=== PATIENT | male | born 1980 | race African-American/Black ===

== ENCOUNTER 2019-06-26 09:44 | Inpatient (IN) | payer OTHER ==
[2019-06-26 10:22] VITALS: BMI 26.2
--- NOTE | 2019-06-26 15:39 | HP ---
CIWA Score Nausea/Vomitin-No Nausea/No Vomiting Muscle Tremors: 4-Moderate,w/Arms Extend Anxiety: 4-Mod. Anxious/Guarded Agitation: 4-Moderately Restless Paroxysmal Sweats: 3 Orientation: 0-Oriented Tacttile Disturbances: 0-None Auditory Disturbances: 0-None Visual Disturbances: 0-None Headache: 1-Very Mild CIWA-Ar Total Score: 16 - Admission Criteria OASAS Guidelines: Admission for Medically Managed Detox: Requires at least one of the followin. CIWA greater than 12 2. Seizures within the past 24 hours 3. Delirium tremens within the past 24 hours 4. Hallucinations within the past 24 hours 5. Acute intervention needed for co occurring medical disorder 6. Acute intervention needed for co occurring psychiatric disorder 7. Severe withdrawal that cannot be handled at a lower level of care (continued vomiting, continued diarrhea, abnormal vital signs) requiring intravenous medication and/or fluids 8. Admitting History and Physical - Admission Chief Complaint: I need help and need detox History of Present Illness: pt is a 38 yr old male with a history of alcohol dependence seeking detox for treatment. pt was at [facility] ED for alcohol withdrawals and experienced a seizure. pt was referred to our facility for detox. History Source: Patient Limitations to Obtaining History: No Limitations - Past Surgical History Past Surgical History: Yes: None - Smoking History Smoking history: Current every day smoker Have you smoked in the past 12 months: Yes Aproximately how many cigarettes per day: 10 - Alcohol/Substance Use Hx Alcohol Use: Yes History of Substance Use: reports: None - Social History Usual Living Arrangement: Yes: Alone History of Recent Travel: No Admission ROS [facility] Chief Complaint: I need to stop drinking. Allergies/Adverse Reactions: Allergies Allergy/AdvReac Type Severity Reaction Status Date / Time No Known Allergies Allergy Verified 06/26/19 10:16 History of Present Illness: pt is a 38 yr old male with history of alcohol dependence seeking detox for treatment. Exam Limitations: No Limitations - Ebola screening Have you traveled outside of the country in the last 21 days: No Have you had contact with anyone from an Ebola affected area: No Have you been sick,other than usual withdrawal symptoms: No Do you have a fever: No - Review of Systems Constitutional: Chills, Diaphoresis, Night Sweats, Changes in sleep EENT: reports: Tearing, Nose Congestion Respiratory: reports: No Symptoms reported Cardiac: reports: Lightheadedness GI: reports: Poor Appetite, Poor Fluid Intake : reports: No Symptoms Reported Musculoskeletal: reports: Back Pain, Joint Pain Integumentary: reports: Flushing, Sweating Neuro: reports: Headache, Seizure (last seizure yesterday.), Tingling, Tremors Endocrine: reports: Excessive Sweating, Flushing Hematology: reports: No Symptoms Reported Psychiatric: reports: Judgement Intact, Mood/Affect Appropiate, Orientated x3, Agitated, Anxious Other Systems: Reviewed and Negative Patient History - Patient Medical History Hx Anemia: No Hx Asthma: No Hx Chronic Obstructive Pulmonary Disease (COPD): No Hx Cancer: No Hx Cardiac Disorders: No Hx Congestive Heart Failure: No Hx Hypertension: Yes (non compliance with medication) Hx Hypercholesterolemia: Yes (non compliance with medication) Hx Pacemaker: No HX Cerebrovascular Accident: No Hx Seizures: No Hx Dementia: No Hx Diabetes: No Hx Gastrointestinal Disorders: No Hx Liver Disease: No Hx Genitourinary Disorders: No Hx Sexually Transmitted Disorders: No Hx Renal Disease (ESRD): No Hx Thyroid Disease: No Hx Human Immunodeficiency Virus (HIV): No (last 2018 negative) Hx Hepatitis C: No Hx Depression: No Hx Suicide Attempt: No Hx Bipolar Disorder: No Hx Schizophrenia: No - Patient Surgical History Past Surgical History: No - PPD History Previous Implant?: Yes Documented Results: Negative w/o proof Implanted On Prior [facility] Admission?: No PPD to be Administered?: Yes - Reproductive History Patient is a Female of Child Bearing Age (11 -55 yrs old): No - Smoking Cessation Smoking history: Current every day smoker Have you smoked in the past 12 months: Yes Aproximately how many cigarettes per day: 10 Hx Chewing Tobacco Use: No Initiated information on smoking cessation: Yes 'Breaking Loose' booklet given: 06/26/19 - Substance & Tx. History Hx Alcohol Use: Yes Substance Use Type: Alcohol Hx Substance Use Treatment: Yes - Substances abused Alcohol Substance route: Oral Frequency: Daily Amount used: "I DRINK ALOT" Age of first use: 31 Date of last use: 06/26/19 Admission Physical Exam [facility] - Vital Signs Vital Signs: Vital Signs - 24 hr 06/26/19 10:16 Temperature 97.0 F L Pulse Rate 104 H Respiratory 20 Rate Blood Pressure 187/92 H - Physical General Appearance: Yes: Appropriately Dressed, Moderate Distress, Tremorous, Irritable, Sweating, Anxious HEENTM: Yes: Hearing grossly Normal, Normal Voice, Nasal Congestion, Rhinorrhea Respiratory: Yes: Lungs Clear, Normal Breath Sounds, No Respiratory Distress Neck: Yes: No masses,lesions,Nodules Breast: Yes: Within Normal Limits Cardiology: Yes: Regular Rhythm, Regular Rate, S1, S2 Abdominal: Yes: Normal Bowel Sounds, Non Tender, Soft Genitourinary: Yes: Within Normal Limits Back: Yes: Normal Inspection Musculoskeletal: Yes: full range of Motion, Back pain Extremities: Yes: Normal Capillary Refill, Normal Inspection, Non-Tender, Tremors Neurological: Yes: management manager II-XII NML intact, Fully Oriented, Normal Response Integumentary: Yes: Normal Color, Diaphoresis Lymphatic: Yes: Within Normal Limits - Diagnostic (1) Alcohol dependence with uncomplicated withdrawal Current Visit: Yes Status: Chronic (2) Alcohol related seizure Current Visit: Yes Status: Chronic (3) History of head injury Current Visit: No Status: Acute (4) Nicotine dependence Current Visit: Yes Status: Chronic Qualifiers: Nicotine product type: cigarettes Substance use status: uncomplicated Qualified Code(s): F17.210 - Nicotine dependence, cigarettes, uncomplicated (5) Syncope Current Visit: Yes Status: Chronic Cleared for Admission S - Detox or Rehab [facility] Level of Care: Medically Managed Detox Regimen/Protocol: Librium Claeared for Rehab Admission: No Breathalyzer - Breathalyzer Breathalyzer: 0.019 Urine Drug Screen - Test Device Lot number: [id number] Expiration date: 02/01/21 - Control Is test valid?: Yes - Results Drug screen NEGATIVE: No Urine drug screen results: BZO-Benzodiazepines Inpatient Rehab Admission - Rehab Decision to Admit Inpatient rehab admission?: No
[2019-06-26] MEDS ORDERED: IBUPROFEN 400 MG TABLET (FP) PO PRN (15:45)
[2019-06-26] MEDS ORDERED: MAGNESIUM CITRATE 300 ML BOTTLE PO PRN (15:45)
[2019-06-26] MEDS ORDERED: MAGNESIUM HYDROX 2400MG/30ML ORAL SUSPENSION 30 ML CUP PO PRN (15:45)
[2019-06-26] MEDS ORDERED: chlordiazePOXIDE HCL 25 MG CAPSULE PO PRN (15:45)
[2019-06-26] MEDS ORDERED: BISMUTH SUBSALICYLATE 524 MG/30 ML UD PO PRN (15:45)
[2019-06-26] MEDS ORDERED: ONDANSETRON *ODT* 4 MG TABLET SL PRN (15:45)
[2019-06-26] MEDS ORDERED: MELATONIN 5 MG TABLETS PO PRN (15:45)
[2019-06-26] MEDS ORDERED: METHOCARBAMOL 500 MG TABLET PO PRN (15:45)
[2019-06-26] MEDS ORDERED: MENTHOL/PHENOL 1 EACH UD MM PRN (15:45)
[2019-06-26] MEDS ORDERED: hydrOXYzine PAMOATE 25 MG CAPSULE (FP) PO PRN (15:45)
[2019-06-26] MEDS ORDERED: MAG HYDROX/AL HYDROX/SIMETH 30 ML UNIT-DOSE CUP PO PRN (15:45)
[2019-06-26] MEDS ORDERED: ACETAMINOPHEN 325 MG TABLET (FP) PO PRN ×2 (15:45)
[2019-06-26] MEDS: chlordiazePOXIDE HCL 25 MG CAPSULE PO SCH ×2 (17:02→22:18)
[2019-06-26] MEDS: THIAMINE HCL 100 MG TABLET (FP) PO SCH (22:18)
[2019-06-26] MEDS: levETIRAcetam 250 MG TABLET (FP) PO SCH (22:18)
[2019-06-27] MEDS: chlordiazePOXIDE HCL 25 MG CAPSULE PO SCH ×4 (05:12→22:29)
[2019-06-27 09:59] LABS: HEMATOCRIT 26.7 % (35.4-49); HEMOGLOBIN 8.6 GM/dL (11.7-16.9); MCHC 32.4 g/dl (32.0-35.9); MEAN CELL VOLUME 86.4 fl (80-96); MEAN PLT VOLUME 8.8 fl (7.5-11.1); PLATELET COUNT 245 K/MM3 (134-434); RBC 3.09 M/mm3 (4.00-5.60); RDW 26.2 % (11.9-15.9); WHITE BLOOD COUNT 5.3 K/mm3 (4.0-10.0)
[2019-06-27] MEDS: PRENATAL VITAMINS W/ FOLIC ACID TABLET (FP) PO SCH (10:16)
[2019-06-27] MEDS: levETIRAcetam 250 MG TABLET (FP) PO SCH ×2 (10:16→22:31)
[2019-06-27 10:17] LABS: ALBUMIN 3.1 g/dl (3.4-5.0); BILIRUBIN,TOTAL 0.5 mg/dL (0.2-1); CALCIUM 8.8 mg/dL (8.5-10.1); CREATININE 0.6 mg/dL (0.55-1.3); POTASSIUM 3.7 mmol/L (3.5-5.1); TOT PROT 6.3 g/dl (6.4-8.2)
--- NOTE | 2019-06-27 13:19 | PN ---
[facility] CIWA - CIWA Score Nausea/Vomitin-Mild Nausea/No Vomiting Muscle Tremors: 2 Anxiety: 2 Agitation: 2 Paroxysmal Sweats: No Perspiration Orientation: 0-Oriented Tacttile Disturbances: 1-Very Mild Itch/Numbness Auditory Disturbances: 0-None Visual Disturbances: 0-None Headache: 2-Mild CIWA-Ar Total Score: 10 S Progress Note (SOAP) Subjective: alert,irritable,anxious,interrupted sleep,tremor,pain in the body Objective: 06/27/19 13:18 Vital Signs Temperature 97.9 F 06/27/19 09:25 Pulse Rate 96 H 06/27/19 09:25 Respiratory Rate 18 06/27/19 09:25 Blood Pressure 144/79 06/27/19 09:25 O2 Sat by Pulse Oximetry (%) Laboratory Last Values WBC 5.3 K/mm3 (4.0-10.0) 06/27/19 08:15 RBC 3.09 M/mm3 (4.00-5.60) L 06/27/19 08:15 Hgb 8.6 GM/dL (11.7-16.9) L 06/27/19 08:15 Hct 26.7 % (35.4-49) L D 06/27/19 08:15 MCV 86.4 fl (80-96) 06/27/19 08:15 MCH 28.0 pg (25.7-33.7) 06/27/19 08:15 MCHC 32.4 g/dl (32.0-35.9) 06/27/19 08:15 RDW 26.2 % (11.9-15.9) H 06/27/19 08:15 Plt Count 245 K/MM3 (134-434) D 06/27/19 08:15 MPV 8.8 fl (7.5-11.1) 06/27/19 08:15 Sodium 137 mmol/L (136-145) 06/27/19 08:15 Potassium 3.7 mmol/L (3.5-5.1) 06/27/19 08:15 Chloride 102 mmol/L (98-107) 06/27/19 08:15 Carbon Dioxide 28 mmol/L (21-32) 06/27/19 08:15 Anion Gap 7 MMOL/L (8-16) L 06/27/19 08:15 BUN 8.0 mg/dL (7-18) 06/27/19 08:15 Creatinine 0.6 mg/dL (0.55-1.3) 06/27/19 08:15 Est GFR (CKD-EPI)AfAm 145.76 06/27/19 08:15 Est GFR (CKD-EPI)NonAf 125.77 06/27/19 08:15 Random Glucose 97 mg/dL (74-106) 06/27/19 08:15 Calcium 8.8 mg/dL (8.5-10.1) 06/27/19 08:15 Total Bilirubin 0.5 mg/dL (0.2-1) 06/27/19 08:15 AST 57 U/L (15-37) H 06/27/19 08:15 ALT 45 U/L (13-61) 06/27/19 08:15 Alkaline Phosphatase 79 U/L (45-117) 06/27/19 08:15 Total Protein 6.3 g/dl (6.4-8.2) L 06/27/19 08:15 Albumin 3.1 g/dl (3.4-5.0) L 06/27/19 08:15 RPR Titer Nonreactive (NONREACTIVE) 06/27/19 08:15 Assessment: 06/27/19 13:18 withdrawal symptom Plan: continue detox librium regimen,history of anemia will give ferrous sulfate 325 mgs po bid
--- NOTE | 2019-06-27 13:37 | EKG ---
Test Reason : Blood Pressure : / mmHG Vent. Rate : 094 BPM Atrial Rate : 094 BPM P-R Int : 160 ms QRS Dur : 096 ms QT Int : 340 ms P-R-T Axes : 057 067 046 degrees QTc Int : 425 ms NORMAL SINUS RHYTHM VOLTAGE CRITERIA FOR LEFT VENTRICULAR HYPERTROPHY ABNORMAL ECG WHEN COMPARED WITH ECG OF 25-APR-2019 14:27, NO SIGNIFICANT CHANGE WAS FOUND Confirmed by ISAURO CARY, PALLAVI ([id number]) on 06/27/2019 1:36:44 PM Referred By: Confirmed By:PALLAVI BOX MD
[2019-06-27] MEDS: FERROUS SO4 325 MG TABLET (FP) PO SCH ×2 (14:43→22:29)
[2019-06-27] MEDS: THIAMINE HCL 100 MG TABLET (FP) PO SCH (22:31)
[2019-06-28] MEDS: chlordiazePOXIDE HCL 25 MG CAPSULE PO SCH ×2 (06:07→10:10)
[2019-06-28 06:33] VITALS: TEMP 98.6
[2019-06-28 09:07] VITALS: BP 148/90; PULSE 88
[2019-06-28] MEDS: PRENATAL VITAMINS W/ FOLIC ACID TABLET (FP) PO SCH (10:09)
[2019-06-28] MEDS: levETIRAcetam 250 MG TABLET (FP) PO SCH (10:09)
[2019-06-28] MEDS: FERROUS SO4 325 MG TABLET (FP) PO SCH (10:09)
--- NOTE | 2019-06-28 19:23 | DS ---
[facility] Detox Discharge Summary Admission Date: 06/26/19 Discharge Date: 06/28/19 - History Present History: Alcohol Dependence Additional Comments: DESPITE EFFORTS BY GARBAGE TRUCK DRIVER AND BY NURSING STAFF TO ADDRESS PATIENT'S MEDICAL NEEDS / CONCERNS, PATIENT DOES NOT WISH TO REMAIN TO COMPLETE DETOX REGIMEN. RISKS OF LEAVING DETOX UNIT AGAINST MEDICAL ADVICE AND PRIOR TO COMPLETION OF DETOX REGIMEN EXPLAINED TO PATIENT. PATIENT ADVISED TO GO IMMEDIATELY TO NEAREST ER SHOULD ANY INTOLERABLE WITHDRAWAL / DETOX SYMPTOMS DEVELOP AT ANY TIME. PATIENT VERBALIZED UNDERSTANDING OF ALL INFORMATION / RECOMMENDATIONS PRESENTED TO HIM PRIOR TO DEPARTURE FROM DETOX UNIT. PATIENT LEFT DETOX UNIT IN STABLE MEDICAL CONDITION. Pertinent Past History: History Of Head Injury, Nicotine Dependence, Anemia, History Of Alcohol-Related Seizure, History Of Syncope. - Physical Exam Results Vital Signs: Vital Signs Temperature 98.6 F 06/28/19 06:32 Pulse Rate 88 06/28/19 09:06 Respiratory Rate 18 06/28/19 09:06 Blood Pressure 148/90 06/28/19 09:06 O2 Sat by Pulse Oximetry (%) Pertinent Admission Physical Exam Findings: WITHDRAWAL SYMPTOMS. Laboratory Tests 06/27/19 06/27/19 06/27/19 08:15 08:15 08:15 WBC 5.3 RBC 3.09 L Hgb 8.6 L Hct 26.7 L D MCV 86.4 MCH 28.0 MCHC 32.4 RDW 26.2 H Plt Count 245 D MPV 8.8 Sodium 137 Potassium 3.7 Chloride 102 Carbon Dioxide 28 Anion Gap 7 L BUN 8.0 Creatinine 0.6 Est GFR (CKD-EPI)AfAm 145.76 Est GFR (CKD-EPI)NonAf 125.77 Random Glucose 97 Calcium 8.8 Total Bilirubin 0.5 AST 57 H ALT 45 Alkaline Phosphatase 79 Total Protein 6.3 L Albumin 3.1 L RPR Titer Nonreactive LABS NOTED. - Medication Discharge Medications: Ambulatory Orders Levetiracetam [Keppra] 250 mg PO BID 06/26/19 - Diagnosis (1) History of head injury Status: Acute (2) Alcohol dependence with uncomplicated withdrawal Status: Acute (3) Alcohol related seizure Status: Chronic (4) Nicotine dependence Status: Chronic Qualifiers: Nicotine product type: cigarettes Substance use status: uncomplicated Qualified Code(s): F17.210 - Nicotine dependence, cigarettes, uncomplicated (5) Syncope Status: Chronic Qualifiers: Syncope type: unspecified Qualified Code(s): R55 - Syncope and collapse - AMA Did Patient Leave Against Medical Advice: Yes (PATIENT DID NOT WISH TO REMAIN TO COMPLETE DETOX REGIMEN.) [facility] CIWA - CIWA Score Nausea/Vomitin-No Nausea/No Vomiting Muscle Tremors: None Anxiety: 3 Agitation: 3 Paroxysmal Sweats: 2 Orientation: 0-Oriented Tacttile Disturbances: 2-Mild Itch/Numbness/Burn Auditory Disturbances: 0-None Visual Disturbances: 0-None Headache: 0-None Present CIWA-Ar Total Score: 10
[2019-06-29] MEDS ORDERED: chlordiazePOXIDE HCL 10 MG CAPSULE PO PRN
[2019-06-29] MEDS ORDERED: chlordiazePOXIDE HCL 10 MG CAPSULE PO SCH (05:00)
[2019-06-30] MEDS ORDERED: chlordiazePOXIDE HCL 10 MG CAPSULE PO SCH (05:00)
[2019-07-01] MEDS ORDERED: chlordiazePOXIDE HCL 10 MG CAPSULE PO ONE (05:00)
== END 2019-06-28 11:28 | disposition left against medical advice (07) | DRG 770 ==
LOC: YASAS 09:44 → Y3N 15:40
PROVIDERS: ADMIT Allergy & Immunology; ATTEND Allergy & Immunology
PROC: HZ2ZZZZ Detoxification Services for Substance Abuse Treatment (ICD-10-PCS; principal; 2019-06-26)
DX: F10.230 Alcohol dependence with withdrawal, uncomplicated (principal); F17.210 Nicotine dependence, cigarettes, uncomplicated; I10 Essential (primary) hypertension; E78.00 Pure hypercholesterolemia, unspecified; Z86.69 Personal history of other diseases of the nervous system and sense organs; Z91.14 Patient's other noncompliance with medication regimen; Z87.828 Personal history of other (healed) physical injury and trauma
CPT/HCPCS: 36415; 80053; 85027; 86593; 93005; 93010

== ENCOUNTER 2019-06-26 12:45 | Emergency (ER) | payer OTHER ==
[2019-06-26 13:06] VITALS: BP 147/84; PULSE 92; TEMP 97.8; BMI 26.2
[2019-06-26] MEDS ORDERED: LORazepam 0.5 MG TABLET ONE (13:59)
[2019-06-26] MEDS ORDERED: LORazepam 1 MG TABLET PO ONE (14:01)
--- NOTE | 2019-06-26 14:45 | PDOC ---
Documentation entered by Estefany Dyer SCRIBE, acting as scribe for Brandyn Mcghee MD. Brandyn Mcghee MD: This documentation has been prepared by the Manisha da silva Sammi, SCRIBE, under my direction and personally reviewed by me in its entirety. I confirm that the documentation accurately reflects all work, treatment, procedures, and medical decision making performed by me. History of Present Illness - General Chief Complaint: Alcohol intoxication Stated Complaint: Alcohol intoxication Time Seen by Provider: 06/26/19 13:50 - History of Present Illness Initial Comments: 06/26/19 13:59 The patient is a 38 year old male with a PMH of alcohol abuse and seizures who presents to the emergency department from [facility] for evaluation of withdrawal symptoms, was tremulous, and had an IV in place from his recent evaluation at [facility] yesterday for "alcoholic seizures". At arrival to our ED , IV was not in place. He notes he only gets seizures when drinking and states he has 2 episodes yesterday. He denies any complaints other than he "wants a drink." Social hx: current smoker Past History - Past Medical History Allergies/Adverse Reactions: Allergies Allergy/AdvReac Type Severity Reaction Status Date / Time No Known Allergies Allergy Verified 06/26/19 10:16 Home Medications: Ambulatory Orders Levetiracetam [Keppra] 250 mg PO BID 06/26/19 Anemia: No Asthma: No Cancer: No Cardiac Disorders: No CVA: No COPD: No CHF: No Dementia: No Diabetes: No GI Disorders: No Disorders: No HTN: Yes (non compliance with medication) Hypercholesterolemia: Yes (non compliance with medication) Kidney Stones: No Liver Disease: No Seizures: No Thyroid Disease: No - Reproductive History Testicular Surgery: No - Psycho Social/Smoking Cessation Hx Smoking History: Current every day smoker Have you smoked in the past 12 months: Yes Number of Cigarettes Smoked Daily: 20 Information on smoking cessation initiated: No 'Breaking Loose' booklet given: 04/25/19 Hx Alcohol Use: Yes Drug/Substance Use Hx: No Substance Use Type: Alcohol Hx Substance Use Treatment: Yes (06/21 bharti mcdowell) Review of Systems - Review of Systems Comments:: 06/26/19 14:07 CONSTITUTIONAL: +tremulous. No fever, no chills, no fatigue EYES: No visual changes ENT: No ear pain, no sore throat CARDIOVASCULAR: No chest pain, no palpitations RESPIRATORY: No cough, no SOB GI: No abdominal pain, no nausea, no vomiting, no constipation, no diarrhea GENITOURINARY: No dysuria, no frequency, no hematuria MUSKULOSKELETAL: No backpain, no joint pain, no myalgias SKIN: No rash NEURO: No headache *Physical Exam - Vital Signs Last Vital Signs Temp Pulse Resp BP Pulse Ox 97.8 F 92 H 18 147/84 99 06/26/19 12:54 06/26/19 12:54 06/26/19 12:54 06/26/19 12:54 06/26/19 12:54 - Physical Exam Comments: 06/26/19 14:22 CONSTITUTIONAL: +minimal tremors HEAD: Normocephalic; atraumatic EYES: PERRL; EOM intact ENMT: External appears normal; normal oropharynx NECK: Supple; non-tender; no cervical lymphadenopathy CARD: Normal S1, S2; no murmurs, rubs, or gallops RESP: Normal chest excursion with respiration; breath sounds clear and equal bilaterally; no wheezes, rhonchi, or rales ABD: Soft, non-distended; non-tender; no palpable organomegaly, no palpable hernias EXT: Normal ROM in all four extremities; non-tender to palpation; distal pulses intact SKIN: Warm, dry, no rash NEURO: No focal neurological deficiencies. ED Treatment Course - Medications Given in the ED: ED Medications Discontinued Medications Generic Name Dose Route Start Last Admin Trade Name Jagdeepq PRN Reason Stop Dose Admin Lorazepam 1 mg 06/26/19 14:01 06/26/19 14:01 Ativan - PO 06/26/19 14:02 1 mg NOW ONE Administration Medical Decision Making - Medical Decision Making 06/26/19 14:42 38-year-old male with history of alcohol abuse presents from [facility] detox for weakness, stating that he feels like he is going to drink again. Patient states that he suffers alcoholic seizures only when he drinks excessively and does not suffer from alcohol withdrawal seizures during cessation of alcohol use. Patient was seen at [facility] and transferred to [facility] for evaluation. At that time he was noted to have an IV catheter in his left forearm was transferred to [facility] for its removal. However, the IV catheter was removed prior to patient's arrival in the ER. In the ER, he denies any acute symptomatology and wishes to be transferred back to [facility]. Patient has minimal tremulousness no other evidence of acute alcohol withdrawal. Vital signs are noted. Will administer 1 mg of Ativan p.o. and will transfer back to [facility] for intake. Discharge - Discharge Information Problems reviewed: Yes Clinical Impression/Diagnosis: Alcohol abuse Alcohol withdrawal Qualifiers: Complication of substance-induced condition: uncomplicated Qualified Code(s): F10.230 - Alcohol dependence with withdrawal, uncomplicated Condition: Stable Disposition: HOME - Follow up/Referral Referrals: Pietro Maddox MD [Staff Physician] - - Patient Discharge Instructions Patient Printed Discharge Instructions: DI for Drug or Alcohol Withdrawal - Post Discharge Activity
== END 2019-06-26 14:50 | disposition home or self-care (01) ==
LOC: JER 12:45
DX: F10.230 Alcohol dependence with withdrawal, uncomplicated (principal); F10.10 Alcohol abuse, uncomplicated
CPT/HCPCS: 99281-25

== ENCOUNTER 2022-04-12 14:36 | Inpatient (IN) | payer OTHER ==
[2022-04-12 15:17] VITALS: BMI 23.5
[2022-04-12] MEDS ORDERED: NICOTINE 10 MG CARTRIDGE (INHALER) IH PRN (16:23)
[2022-04-12] MEDS ORDERED: ACETAMINOPHEN 325 MG TABLET (FP) PO PRN ×2 (16:23)
[2022-04-12] MEDS ORDERED: MAGNESIUM HYDROX 2400MG/30ML ORAL SUSPENSION 30 ML CUP PO PRN (16:23)
[2022-04-12] MEDS ORDERED: METHOCARBAMOL 500 MG TABLET PO PRN (16:23)
[2022-04-12] MEDS ORDERED: DICYCLOMINE HCL 10 MG CAPSULE PO PRN (16:23)
[2022-04-12] MEDS ORDERED: ONDANSETRON *ODT* 4 MG TABLET SL PRN (16:23)
[2022-04-12] MEDS ORDERED: IBUPROFEN 400 MG TABLET (FP) PO PRN (16:23)
[2022-04-12] MEDS ORDERED: BENZOCAINE/MENTHOL (CHLORASEPTIC ) LOZENGE MM PRN (16:23)
[2022-04-12] MEDS ORDERED: BISMUTH SUBSALICYLATE 524 MG/30 ML PO PRN (16:23)
[2022-04-12] MEDS ORDERED: MAG HYDROX/AL HYDROX/SIMETH 30 ML UNIT-DOSE CUP PO PRN (16:23)
[2022-04-12] MEDS ORDERED: chlordiazePOXIDE HCL 25 MG CAPSULE PO PRN (16:23)
[2022-04-12] MEDS ORDERED: LOPERAMIDE HCL 2 MG CAPSULE PO PRN (16:23)
[2022-04-12] MEDS ORDERED: MAGNESIUM CITRATE 300 ML BOTTLE PO PRN (16:23)
[2022-04-12] MEDS: chlordiazePOXIDE HCL 25 MG CAPSULE PO SCH ×2 (18:25→22:47)
[2022-04-12] MEDS: PRENATAL VITAMINS W/ FOLIC ACID TABLET (FP) PO SCH (19:00)
[2022-04-12] MEDS: hydrOXYzine PAMOATE 25 MG CAPSULE (FP) PO SCH ×2 (19:00→22:47)
[2022-04-12] MEDS: THIAMINE HCL 100 MG TABLET (FP) PO SCH (22:48)
[2022-04-12] MEDS: MELATONIN 5 MG TABLETS PO SCH (22:49)
[2022-04-13] MEDS: chlordiazePOXIDE HCL 25 MG CAPSULE PO SCH ×4 (05:23→22:44)
[2022-04-13] MEDS: hydrOXYzine PAMOATE 25 MG CAPSULE (FP) PO SCH ×5 (05:23→22:43)
[2022-04-13 10:04] LABS: HEMATOCRIT 39.8 % (35.4-49); MCHC 32.7 g/dl (32.0-35.9); MEAN PLT VOLUME 9.2 fl (7.5-11.1); PLATELET COUNT 206 10^3/uL (134-434); RBC 3.94 M/mm3 (4.00-5.60); RDW 15.6 % (11.9-15.9); WHITE BLOOD COUNT 4.7 K/mm3 (4.0-10.0)
[2022-04-13] MEDS: PRENATAL VITAMINS W/ FOLIC ACID TABLET (FP) PO SCH (10:19)
[2022-04-13 11:27] LABS: CALCIUM 9.1 mg/dL (8.5-10.1)
[2022-04-13 11:30] LABS: CREATININE 0.7 mg/dL (0.55-1.3)
[2022-04-13 11:32] LABS: TOT PROT 7.3 g/dl (6.4-8.2)
[2022-04-13] MEDS: IBUPROFEN 600 MG TABLET (FP) PO PRN (16:56)
[2022-04-13] MEDS: THIAMINE HCL 100 MG TABLET (FP) PO SCH (22:43)
[2022-04-13] MEDS: levETIRAcetam 250 MG TABLET PO SCH (22:43)
[2022-04-13] MEDS: MELATONIN 5 MG TABLETS PO SCH (22:45)
[2022-04-14] MEDS: chlordiazePOXIDE HCL 25 MG CAPSULE PO SCH ×3 (05:32→17:53)
[2022-04-14] MEDS: hydrOXYzine PAMOATE 25 MG CAPSULE (FP) PO SCH ×4 (05:33→17:51)
[2022-04-14 06:13] VITALS: RESP 18
[2022-04-14] MEDS: levETIRAcetam 250 MG TABLET PO SCH (11:47)
[2022-04-14] MEDS: PRENATAL VITAMINS W/ FOLIC ACID TABLET (FP) PO SCH (11:50)
[2022-04-15] MEDS ORDERED: chlordiazePOXIDE HCL 10 MG CAPSULE PO PRN
[2022-04-15] MEDS: THIAMINE HCL 100 MG TABLET (FP) PO SCH ×2 (00:38→22:03)
[2022-04-15] MEDS: MELATONIN 5 MG TABLETS PO SCH ×2 (00:38→22:03)
[2022-04-15] MEDS: chlordiazePOXIDE HCL 25 MG CAPSULE PO SCH (00:38)
[2022-04-15] MEDS: levETIRAcetam 250 MG TABLET PO SCH ×3 (00:38→22:02)
[2022-04-15] MEDS: hydrOXYzine PAMOATE 25 MG CAPSULE (FP) PO SCH ×6 (00:38→22:03)
[2022-04-15] MEDS: chlordiazePOXIDE HCL 10 MG CAPSULE PO SCH ×4 (05:35→22:02)
[2022-04-15] MEDS: PRENATAL VITAMINS W/ FOLIC ACID TABLET (FP) PO SCH (10:13)
[2022-04-15] MEDS: IBUPROFEN 600 MG TABLET (FP) PO PRN (15:02)
[2022-04-16] MEDS ORDERED: chlordiazePOXIDE HCL 10 MG CAPSULE PO SCH (05:00)
[2022-04-16 06:02] VITALS: BP 146/83; PULSE 66; TEMP 97.7
[2022-04-16] MEDS: hydrOXYzine PAMOATE 25 MG CAPSULE (FP) PO SCH ×2 (06:40→10:16)
[2022-04-16] MEDS: PRENATAL VITAMINS W/ FOLIC ACID TABLET (FP) PO SCH (10:16)
[2022-04-16] MEDS: levETIRAcetam 250 MG TABLET PO SCH (10:16)
[2022-04-17] MEDS ORDERED: chlordiazePOXIDE HCL 10 MG CAPSULE PO ONE (05:00)
== END 2022-04-16 11:58 | disposition left against medical advice (07) | DRG 770 ==
LOC: YASAS 14:36 → SUATTDRO 14:36 → Y6N 16:13
PROVIDERS: ADMIT Allergy & Immunology; ATTEND Surgery
PROC: HZ2ZZZZ Detoxification Services for Substance Abuse Treatment (ICD-10-PCS; principal; 2022-04-12)
DX: F10.230 Alcohol dependence with withdrawal, uncomplicated (principal); F13.20 Sedative, hypnotic or anxiolytic dependence, uncomplicated; F12.20 Cannabis dependence, uncomplicated; F17.210 Nicotine dependence, cigarettes, uncomplicated; F10.282 Alcohol dependence with alcohol-induced sleep disorder; F41.9 Anxiety disorder, unspecified; G40.509 Epileptic seizures related to external causes, not intractable, without status epilepticus; I10 Essential (primary) hypertension; E78.5 Hyperlipidemia, unspecified; Z99.89 Dependence on other enabling machines and devices
CPT/HCPCS: 36415; 80053; 85027; 86780; C9803-CS; U0003; U0005

== ENCOUNTER 2022-12-15 10:03 | Inpatient (IN) | payer OTHER ==
[2022-12-15 10:24] VITALS: BMI 24.3
[2022-12-15] MEDS ORDERED: NICOTINE 7 MG/24 HOURS TOPICAL PATCH TD PRN (10:44)
[2022-12-15] MEDS ORDERED: hydrOXYzine PAMOATE 25 MG CAPSULE (FP) PO PRN (10:44)
[2022-12-15] MEDS ORDERED: BENZOCAINE/MENTHOL (CHLORASEPTIC ) LOZENGE MM PRN (10:44)
[2022-12-15] MEDS ORDERED: MAGNESIUM HYDROX 2400MG/30ML ORAL SUSPENSION 30 ML CUP PO PRN (10:44)
[2022-12-15] MEDS ORDERED: NICOTINE POLACRILEX 2 MG GUM BUC PRN (10:44)
[2022-12-15] MEDS ORDERED: BISMUTH SUBSALICYLATE 262 MG/15 ML BTL PO PRN (10:44)
[2022-12-15] MEDS ORDERED: ONDANSETRON *ODT* 4 MG TABLET SL PRN (10:44)
[2022-12-15] MEDS ORDERED: BENZONATATE 200 MG CAPSULE PO PRN (10:44)
[2022-12-15] MEDS ORDERED: IBUPROFEN 400 MG TABLET (FP) PO PRN (10:44)
[2022-12-15] MEDS ORDERED: guaiFENesin 600 MG TABLET.ER (FP) PO PRN (10:44)
[2022-12-15] MEDS ORDERED: POLYETHYLENE GLYCOL (HEALTHYLAX) 3350 17 GM PACKET PO PRN (10:44)
[2022-12-15] MEDS ORDERED: IBUPROFEN 600 MG TABLET (FP) PO PRN (10:44)
[2022-12-15] MEDS ORDERED: DICYCLOMINE HCL 10 MG CAPSULE PO PRN (10:44)
[2022-12-15] MEDS ORDERED: ACETAMINOPHEN 325 MG TABLET (FP) PO PRN (10:44)
[2022-12-15] MEDS ORDERED: LOPERAMIDE HCL 2 MG CAPSULE PO PRN (10:44)
[2022-12-15] MEDS ORDERED: MAG HYDROX/AL HYDROX/SIMETH 30 ML UNIT-DOSE CUP PO PRN (10:44)
[2022-12-15] MEDS ORDERED: METHOCARBAMOL 500 MG TABLET PO PRN (10:44)
[2022-12-15] MEDS ORDERED: NICOTINE 10 MG CARTRIDGE (INHALER) IH PRN (10:44)
[2022-12-15] MEDS: MELATONIN 5 MG TABLETS PO SCH (22:41)
[2022-12-15] MEDS: levETIRAcetam XR 750 MG TAB PO SCH (22:41)
[2022-12-15] MEDS: THIAMINE HCL 100 MG TABLET (FP) PO SCH (22:41)
[2022-12-15] MEDS ORDERED: chlordiazePOXIDE HCL 25 MG CAPSULE PO PRN (23:03)
[2022-12-15] MEDS: chlordiazePOXIDE HCL 25 MG CAPSULE PO SCH (23:49)
[2022-12-16] MEDS: chlordiazePOXIDE HCL 25 MG CAPSULE PO SCH ×4 (05:58→23:14)
[2022-12-16] MEDS: levETIRAcetam XR 750 MG TAB PO SCH ×2 (10:23→22:49)
[2022-12-16] MEDS: PRENATAL VITAMINS W/ FOLIC ACID TABLET (FP) PO SCH (10:25)
[2022-12-16 11:27] LABS: HEMATOCRIT 35.6 % (35.4-49); MCH 30.2 pg (25.7-33.7); MCHC 33.6 g/dl (32.0-35.9); MEAN CELL VOLUME 89.6 fl (80-96); MEAN PLT VOLUME 10.3 fl (7.5-11.1); PLATELET COUNT 184 10^3/uL (134-434); RBC 3.97 M/mm3 (4.00-5.60); RDW 21.6 % (11.9-15.9); WHITE BLOOD COUNT 5.5 K/mm3 (4.0-10.0)
[2022-12-16 11:58] LABS: BILIRUBIN,TOTAL 0.8 mg/dL (0.2-1); BLOOD UREA NITROGEN 8.3 mg/dL (7-18); CREATININE 0.8 mg/dL (0.55-1.3); TOT PROT 7.4 g/dl (6.4-8.2)
[2022-12-16] MEDS: MELATONIN 5 MG TABLETS PO SCH (22:56)
[2022-12-16] MEDS: THIAMINE HCL 100 MG TABLET (FP) PO SCH (22:56)
[2022-12-17] MEDS: chlordiazePOXIDE HCL 25 MG CAPSULE PO SCH ×4 (05:52→22:33)
[2022-12-17] MEDS: levETIRAcetam XR 750 MG TAB PO SCH ×2 (10:46→22:34)
[2022-12-17] MEDS: PRENATAL VITAMINS W/ FOLIC ACID TABLET (FP) PO SCH (10:47)
[2022-12-17] MEDS: MELATONIN 5 MG TABLETS PO SCH (22:34)
[2022-12-17] MEDS: THIAMINE HCL 100 MG TABLET (FP) PO SCH (22:34)
[2022-12-17] MEDS ORDERED: cloNIDine HCL 0.1 MG TABLET PO ONE (23:04)
[2022-12-18] MEDS ORDERED: chlordiazePOXIDE HCL 10 MG CAPSULE PO PRN
[2022-12-18] MEDS: chlordiazePOXIDE HCL 10 MG CAPSULE PO SCH ×2 (05:31→10:56)
[2022-12-18 07:02] VITALS: RESP 18
[2022-12-18 09:20] VITALS: BP 121/74; PULSE 68; TEMP 97.8
[2022-12-18] MEDS: levETIRAcetam XR 750 MG TAB PO SCH (10:54)
[2022-12-18] MEDS: PRENATAL VITAMINS W/ FOLIC ACID TABLET (FP) PO SCH (10:55)
[2022-12-19] MEDS ORDERED: chlordiazePOXIDE HCL 10 MG CAPSULE PO SCH (05:00)
[2022-12-20] MEDS ORDERED: chlordiazePOXIDE HCL 10 MG CAPSULE PO ONE (05:00)
== END 2022-12-18 13:30 | disposition left against medical advice (07) | DRG 770 ==
LOC: YASAS 10:03 → Y3N 11:14
PROVIDERS: ADMIT Allergy & Immunology; ATTEND Surgery
PROC: HZ2ZZZZ Detoxification Services for Substance Abuse Treatment (ICD-10-PCS; principal; 2022-12-15)
DX: F10.230 Alcohol dependence with withdrawal, uncomplicated (principal); F13.20 Sedative, hypnotic or anxiolytic dependence, uncomplicated; F12.20 Cannabis dependence, uncomplicated; F17.210 Nicotine dependence, cigarettes, uncomplicated; Z86.69 Personal history of other diseases of the nervous system and sense organs; Z99.89 Dependence on other enabling machines and devices
CPT/HCPCS: 36415; 80053; 80061; 80177; 85027; 86780; C9803-CS; U0003; U0005

== ENCOUNTER 2023-07-15 09:55 | Inpatient (IN) | payer OTHER ==
[2023-07-15 12:24] VITALS: BMI 22.7
[2023-07-15] MEDS ORDERED: MAG HYDROX/AL HYDROX/SIMETH 30 ML UNIT-DOSE CUP PO PRN (13:00)
[2023-07-15] MEDS ORDERED: BISMUTH SUBSALICYLATE 524 MG/30 ML PO PRN (13:00)
[2023-07-15] MEDS ORDERED: BENZOCAINE/MENTHOL (CHLORASEPTIC ) LOZENGE MM PRN (13:00)
[2023-07-15] MEDS ORDERED: LOPERAMIDE HCL 2 MG CAPSULE PO PRN (13:00)
[2023-07-15] MEDS ORDERED: BENZONATATE 200 MG CAPSULE PO PRN (13:00)
[2023-07-15] MEDS ORDERED: guaiFENesin 600 MG TABLET.ER (FP) PO PRN (13:00)
[2023-07-15] MEDS ORDERED: IBUPROFEN 400 MG TABLET (FP) PO PRN (13:00)
[2023-07-15] MEDS ORDERED: MAGNESIUM HYDROX 2400MG/30ML ORAL SUSPENSION 30 ML CUP PO PRN (13:00)
[2023-07-15] MEDS ORDERED: DICYCLOMINE HCL 10 MG CAPSULE PO PRN (13:00)
[2023-07-15] MEDS ORDERED: ONDANSETRON *ODT* 4 MG TABLET SL PRN (13:00)
[2023-07-15] MEDS ORDERED: NALOXONE HCL 0.4 MG/ML VIAL IM PRN (13:00)
[2023-07-15] MEDS ORDERED: NICOTINE POLACRILEX 2 MG GUM BUC PRN (13:00)
[2023-07-15] MEDS ORDERED: chlordiazePOXIDE HCL 25 MG CAPSULE PO PRN (13:00)
[2023-07-15] MEDS ORDERED: NALOXONE HCL (KLOXXADO) 8 MG SPRAY NS PRN (13:00)
[2023-07-15] MEDS ORDERED: POLYETHYLENE GLYCOL (HEALTHYLAX) 3350 17 GM PACKET PO PRN (13:00)
[2023-07-15] MEDS ORDERED: ACETAMINOPHEN 325 MG TABLET (FP) PO PRN (13:00)
[2023-07-15] MEDS ORDERED: IBUPROFEN 600 MG TABLET (FP) PO PRN (13:00)
[2023-07-15] MEDS ORDERED: chlordiazePOXIDE HCL 25 MG CAPSULE ONE (13:46)
[2023-07-15] MEDS ORDERED: ONDANSETRON *ODT* 4 MG TABLET ONE (13:46)
[2023-07-15] MEDS ORDERED: chlordiazePOXIDE HCL 25 MG CAPSULE PO ONE (14:00)
[2023-07-15] MEDS: chlordiazePOXIDE HCL 25 MG CAPSULE PO SCH ×2 (17:04→22:24)
[2023-07-15] MEDS: THIAMINE HCL 100 MG TABLET (FP) PO SCH (22:23)
[2023-07-15] MEDS: levETIRAcetam 250 MG TABLET PO SCH (22:23)
[2023-07-15] MEDS: MELATONIN 5 MG TABLETS PO SCH (22:23)
[2023-07-16] MEDS: chlordiazePOXIDE HCL 25 MG CAPSULE PO SCH ×4 (05:51→22:32)
[2023-07-16 10:23] LABS: HEMATOCRIT 37.4 % (35.4-49); MCH 29.1 pg (25.7-33.7); MEAN CELL VOLUME 91.1 fl (80-96); MEAN PLT VOLUME 9.7 fl (7.5-11.1); PLATELET COUNT 229 10^3/uL (134-434); RDW 18.3 % (11.9-15.9); WHITE BLOOD COUNT 6.6 K/mm3 (4.0-10.0)
[2023-07-16] MEDS: levETIRAcetam 250 MG TABLET PO SCH ×2 (10:30→22:06)
[2023-07-16] MEDS: PRENATAL VITAMINS W/ FOLIC ACID TABLET (FP) PO SCH (10:31)
[2023-07-16] MEDS: THIAMINE HCL 100 MG TABLET (FP) PO SCH (22:32)
[2023-07-16] MEDS: MELATONIN 5 MG TABLETS PO SCH (22:32)
[2023-07-17] MEDS: chlordiazePOXIDE HCL 25 MG CAPSULE PO SCH ×4 (05:51→22:00)
[2023-07-17] MEDS: levETIRAcetam 250 MG TABLET PO SCH ×2 (10:21→22:00)
[2023-07-17] MEDS: PRENATAL VITAMINS W/ FOLIC ACID TABLET (FP) PO SCH (10:21)
[2023-07-17] MEDS: MELATONIN 5 MG TABLETS PO SCH (22:00)
[2023-07-17] MEDS: THIAMINE HCL 100 MG TABLET (FP) PO SCH (22:00)
[2023-07-18] MEDS ORDERED: chlordiazePOXIDE HCL 10 MG CAPSULE PO PRN
[2023-07-18] MEDS: chlordiazePOXIDE HCL 10 MG CAPSULE PO SCH ×5 (05:30→22:44)
[2023-07-18] MEDS: PRENATAL VITAMINS W/ FOLIC ACID TABLET (FP) PO SCH (10:21)
[2023-07-18] MEDS: levETIRAcetam 250 MG TABLET PO SCH ×2 (10:21→22:34)
[2023-07-18] MEDS: METHOCARBAMOL 500 MG TABLET PO PRN (10:22)
[2023-07-18] MEDS: THIAMINE HCL 100 MG TABLET (FP) PO SCH (22:35)
[2023-07-18] MEDS: MELATONIN 5 MG TABLETS PO SCH (22:35)
[2023-07-19] MEDS: chlordiazePOXIDE HCL 10 MG CAPSULE PO SCH ×2 (05:58→17:17)
[2023-07-19] MEDS: METHOCARBAMOL 500 MG TABLET PO PRN (05:59)
[2023-07-19] MEDS: levETIRAcetam 250 MG TABLET PO SCH ×2 (10:15→22:05)
[2023-07-19] MEDS: PRENATAL VITAMINS W/ FOLIC ACID TABLET (FP) PO SCH (10:16)
[2023-07-19 11:01] LABS: POTASSIUM 4.6 mmol/L (3.5-5.1)
[2023-07-19 11:10] LABS: BLOOD UREA NITROGEN 9.5 mg/dL (7-18)
[2023-07-19 11:12] LABS: CREATININE 0.9 mg/dL (0.55-1.3)
[2023-07-19 11:14] LABS: BILIRUBIN,TOTAL 0.3 mg/dL (0.2-1); TOT PROT 7.4 g/dl (6.4-8.2)
[2023-07-19] MEDS: THIAMINE HCL 100 MG TABLET (FP) PO SCH (22:05)
[2023-07-19] MEDS: MELATONIN 5 MG TABLETS PO SCH (22:05)
[2023-07-20] MEDS ORDERED: chlordiazePOXIDE HCL 10 MG CAPSULE PO ONE (05:00)
[2023-07-20 10:06] VITALS: BP 159/86; PULSE 99; RESP 16; TEMP 98.3
[2023-07-20] MEDS: PRENATAL VITAMINS W/ FOLIC ACID TABLET (FP) PO SCH (10:30)
[2023-07-20] MEDS: levETIRAcetam 250 MG TABLET PO SCH (10:30)
== END 2023-07-20 10:25 | disposition home or self-care (01) | DRG 775 ==
LOC: YASAS 09:55 → Y6N 13:52
PROVIDERS: ADMIT Allergy & Immunology; ATTEND Surgery
PROC: HZ2ZZZZ Detoxification Services for Substance Abuse Treatment (ICD-10-PCS; principal; 2023-07-15)
DX: F10.230 Alcohol dependence with withdrawal, uncomplicated (principal); F13.20 Sedative, hypnotic or anxiolytic dependence, uncomplicated; F12.20 Cannabis dependence, uncomplicated; F17.210 Nicotine dependence, cigarettes, uncomplicated; F10.280 Alcohol dependence with alcohol-induced anxiety disorder; F10.282 Alcohol dependence with alcohol-induced sleep disorder; F10.24 Alcohol dependence with alcohol-induced mood disorder; G62.9 Polyneuropathy, unspecified; G40.909 Epilepsy, unspecified, not intractable, without status epilepticus; Z91.148 Patient's other noncompliance with medication regimen for other reason
CPT/HCPCS: 36415; 80053; 80177; 82140; 85027; 86780; 87635; Q0162

== ENCOUNTER 2023-08-26 09:38 | Inpatient (IN) | payer OTHER ==
[2023-08-26] MEDS ORDERED: LOPERAMIDE HCL 2 MG CAPSULE PO PRN (11:08)
[2023-08-26] MEDS ORDERED: IBUPROFEN 400 MG TABLET (FP) PO PRN (11:08)
[2023-08-26] MEDS ORDERED: ONDANSETRON *ODT* 4 MG TABLET SL PRN (11:08)
[2023-08-26] MEDS ORDERED: ACETAMINOPHEN 325 MG TABLET (FP) PO PRN (11:08)
[2023-08-26] MEDS ORDERED: METHOCARBAMOL 500 MG TABLET PO PRN (11:08)
[2023-08-26] MEDS ORDERED: MAGNESIUM HYDROX 2400MG/30ML ORAL SUSPENSION 30 ML CUP PO PRN (11:08)
[2023-08-26] MEDS ORDERED: BISMUTH SUBSALICYLATE 524 MG/30 ML PO PRN (11:08)
[2023-08-26] MEDS ORDERED: BENZOCAINE/MENTHOL (CHLORASEPTIC ) LOZENGE MM PRN (11:08)
[2023-08-26] MEDS ORDERED: NICOTINE POLACRILEX 2 MG GUM BUC PRN (11:08)
[2023-08-26] MEDS ORDERED: IBUPROFEN 600 MG TABLET (FP) PO PRN (11:08)
[2023-08-26] MEDS ORDERED: POLYETHYLENE GLYCOL (HEALTHYLAX) 3350 17 GM PACKET PO PRN (11:08)
[2023-08-26] MEDS ORDERED: BENZONATATE 200 MG CAPSULE PO PRN (11:08)
[2023-08-26] MEDS ORDERED: guaiFENesin 600 MG TABLET.ER (FP) PO PRN (11:08)
[2023-08-26] MEDS ORDERED: MAG HYDROX/AL HYDROX/SIMETH 30 ML UNIT-DOSE CUP PO PRN (11:08)
[2023-08-26] MEDS ORDERED: DICYCLOMINE HCL 10 MG CAPSULE PO PRN (11:08)
[2023-08-26] MEDS ORDERED: chlordiazePOXIDE HCL 25 MG CAPSULE PO PRN (11:10)
[2023-08-26] MEDS: chlordiazePOXIDE HCL 25 MG CAPSULE PO SCH ×3 (11:47→22:34)
[2023-08-26] MEDS: levETIRAcetam 250 MG TABLET PO SCH ×2 (11:47→22:33)
[2023-08-26] MEDS ORDERED: chlordiazePOXIDE HCL 25 MG CAPSULE ONE (11:59)
[2023-08-26 12:48] VITALS: BMI 25.0
[2023-08-26] MEDS: MELATONIN 5 MG TABLETS PO SCH (22:34)
[2023-08-26] MEDS: THIAMINE HCL 100 MG TABLET (FP) PO SCH (22:34)
[2023-08-27] MEDS: chlordiazePOXIDE HCL 25 MG CAPSULE PO SCH ×4 (05:50→22:01)
[2023-08-27 10:21] LABS: HEMATOCRIT 32.3 % (35.4-49); HEMOGLOBIN 10.8 GM/dL (11.7-16.9); MCH 31.6 pg (25.7-33.7); MCHC 33.3 g/dl (32.0-35.9); MEAN CELL VOLUME 94.9 fl (80-96); MEAN PLT VOLUME 8.9 fl (7.5-11.1); PLATELET COUNT 183 10^3/uL (134-434); RBC 3.41 M/mm3 (4.00-5.60); RDW 18.4 % (11.9-15.9); WHITE BLOOD COUNT 9.2 K/mm3 (4.0-10.0)
[2023-08-27 10:28] LABS: CHLORIDE 107 mmol/L (98-107); POTASSIUM 3.8 mmol/L (3.5-5.1); SODIUM 138 mmol/L (136-145)
[2023-08-27 10:31] LABS: ALBUMIN 3.2 g/dl (3.4-5.0)
[2023-08-27 10:32] LABS: ANION GAP 4 mmol/L (4-13); BLOOD UREA NITROGEN 7.1 mg/dL (7-18); CALCIUM 8.5 mg/dL (8.5-10.1); CO2 27 mmol/L (21-32); GLUCOSE,RANDOM 99 mg/dL (74-106)
[2023-08-27] MEDS: PRENATAL VITAMINS W/ FOLIC ACID TABLET (FP) PO SCH (10:33)
[2023-08-27] MEDS: levETIRAcetam 250 MG TABLET PO SCH ×2 (10:33→22:01)
[2023-08-27 10:35] LABS: CREATININE 0.7 mg/dL (0.55-1.3); SGOT/AST 17 U/L (15-37)
[2023-08-27 10:36] LABS: BILIRUBIN,TOTAL 0.5 mg/dL (0.2-1); SGPT/ALT 16 U/L (13-61)
[2023-08-27 10:38] LABS: ALK PHOS 70 U/L (45-117)
[2023-08-27] MEDS: THIAMINE HCL 100 MG TABLET (FP) PO SCH (22:02)
[2023-08-27] MEDS: MELATONIN 5 MG TABLETS PO SCH (22:02)
[2023-08-28] MEDS: chlordiazePOXIDE HCL 25 MG CAPSULE PO SCH ×5 (05:55→23:00)
[2023-08-28] MEDS: PRENATAL VITAMINS W/ FOLIC ACID TABLET (FP) PO SCH (10:17)
[2023-08-28] MEDS: levETIRAcetam 250 MG TABLET PO SCH ×2 (10:17→22:59)
[2023-08-28] MEDS: THIAMINE HCL 100 MG TABLET (FP) PO SCH (23:00)
[2023-08-28] MEDS: MELATONIN 5 MG TABLETS PO SCH (23:00)
[2023-08-29] MEDS ORDERED: chlordiazePOXIDE HCL 10 MG CAPSULE PO PRN
[2023-08-29] MEDS: chlordiazePOXIDE HCL 10 MG CAPSULE PO SCH ×4 (05:28→22:26)
[2023-08-29] MEDS: levETIRAcetam 250 MG TABLET PO SCH ×2 (10:50→21:20)
[2023-08-29] MEDS: PRENATAL VITAMINS W/ FOLIC ACID TABLET (FP) PO SCH (10:50)
[2023-08-29] MEDS ORDERED: levETIRAcetam 250 MG TABLET PO ONE (11:00)
[2023-08-29] MEDS: METHOCARBAMOL 500 MG TABLET PO PRN (20:40)
[2023-08-29] MEDS: THIAMINE HCL 100 MG TABLET (FP) PO SCH (21:20)
[2023-08-29] MEDS: MELATONIN 5 MG TABLETS PO SCH (21:21)
[2023-08-30] MEDS: chlordiazePOXIDE HCL 10 MG CAPSULE PO SCH ×2 (05:34→17:12)
[2023-08-30] MEDS: METHOCARBAMOL 500 MG TABLET PO PRN ×2 (05:36→21:57)
[2023-08-30] MEDS: levETIRAcetam 250 MG TABLET PO SCH ×2 (09:08→21:54)
[2023-08-30] MEDS: PRENATAL VITAMINS W/ FOLIC ACID TABLET (FP) PO SCH (09:09)
[2023-08-30 17:33] VITALS: RESP 18; TEMP 97.8
[2023-08-30] MEDS: MELATONIN 5 MG TABLETS PO SCH (22:04)
[2023-08-30] MEDS: THIAMINE HCL 100 MG TABLET (FP) PO SCH (22:05)
[2023-08-31] MEDS ORDERED: chlordiazePOXIDE HCL 10 MG CAPSULE PO ONE (05:00)
[2023-08-31 07:04] VITALS: BP 112/69; PULSE 85
[2023-08-31] MEDS: levETIRAcetam 250 MG TABLET PO SCH (09:01)
[2023-08-31] MEDS: PRENATAL VITAMINS W/ FOLIC ACID TABLET (FP) PO SCH (09:01)
== END 2023-08-31 09:14 | disposition home or self-care (01) | DRG 775 ==
LOC: YASAS 09:38 → Y3N 11:56 → Y6N 08-30 12:53
PROVIDERS: ADMIT Allergy & Immunology; ATTEND Surgery
PROC: HZ2ZZZZ Detoxification Services for Substance Abuse Treatment (ICD-10-PCS; principal; 2023-08-26)
DX: F10.230 Alcohol dependence with withdrawal, uncomplicated (principal); F12.20 Cannabis dependence, uncomplicated; F17.210 Nicotine dependence, cigarettes, uncomplicated; G62.9 Polyneuropathy, unspecified; R56.1 Post traumatic seizures; Z87.820 Personal history of traumatic brain injury
CPT/HCPCS: 36415; 80053; 80307; 85027; 86780; 87635

== ENCOUNTER 2024-01-26 17:13 | Inpatient (IN) | payer OTHER ==
[2024-01-26 18:32] VITALS: BMI 27.7
[2024-01-26] MEDS ORDERED: LOPERAMIDE HCL 2 MG CAPSULE PO PRN (20:06)
[2024-01-26] MEDS ORDERED: IBUPROFEN 600 MG TABLET (FP) PO PRN (20:06)
[2024-01-26] MEDS ORDERED: BENZOCAINE/MENTHOL (CHLORASEPTIC ) LOZENGE MM PRN (20:06)
[2024-01-26] MEDS ORDERED: guaiFENesin 600 MG TABLET.ER (FP) PO PRN (20:06)
[2024-01-26] MEDS ORDERED: MAG HYDROX/AL HYDROX/SIMETH 30 ML UNIT-DOSE CUP PO PRN (20:06)
[2024-01-26] MEDS ORDERED: BENZONATATE 200 MG CAPSULE PO PRN (20:06)
[2024-01-26] MEDS ORDERED: POLYETHYLENE GLYCOL (HEALTHYLAX) 3350 17 GM PACKET PO PRN (20:06)
[2024-01-26] MEDS ORDERED: IBUPROFEN 400 MG TABLET (FP) PO PRN (20:06)
[2024-01-26] MEDS ORDERED: METHOCARBAMOL 500 MG TABLET PO PRN (20:06)
[2024-01-26] MEDS ORDERED: hydrOXYzine PAMOATE 25 MG CAPSULE (FP) PO PRN (20:06)
[2024-01-26] MEDS ORDERED: ACETAMINOPHEN 325 MG TABLET (FP) PO PRN (20:06)
[2024-01-26] MEDS ORDERED: MAGNESIUM HYDROX 2400MG/30ML ORAL SUSPENSION 30 ML CUP PO PRN (20:06)
[2024-01-26] MEDS ORDERED: DICYCLOMINE HCL 10 MG CAPSULE PO PRN (20:06)
[2024-01-26] MEDS ORDERED: ONDANSETRON *ODT* 4 MG TABLET SL PRN (20:06)
[2024-01-26] MEDS ORDERED: NICOTINE POLACRILEX 2 MG GUM BUC PRN (20:06)
[2024-01-26] MEDS ORDERED: BISMUTH SUBSALICYLATE 524 MG/30 ML PO PRN (20:06)
[2024-01-26] MEDS ORDERED: chlordiazePOXIDE HCL 25 MG CAPSULE PO PRN (20:08)
[2024-01-26] MEDS ORDERED: levETIRAcetam 500 MG TABLET (FP) PO ONE (21:29)
[2024-01-26] MEDS ORDERED: METOPROLOL TARTRATE 25 MG TABLET (FP) ONE (21:29)
[2024-01-26] MEDS ORDERED: chlordiazePOXIDE HCL 25 MG CAPSULE ONE (21:29)
[2024-01-26] MEDS: chlordiazePOXIDE HCL 25 MG CAPSULE PO ONE (21:38)
[2024-01-26] MEDS: METOPROLOL TARTRATE 25 MG TABLET (FP) PO ONE (21:38)
[2024-01-26] MEDS: levETIRAcetam XR 750 MG TAB PO SCH (21:59)
[2024-01-26] MEDS: MELATONIN 5 MG TABLETS PO SCH (23:12)
[2024-01-26] MEDS: THIAMINE 100 MG TABLET PO SCH (23:13)
[2024-01-27] MEDS: chlordiazePOXIDE HCL 25 MG CAPSULE PO SCH (00:17)
[2024-01-27] MEDS: PRENATAL VITAMINS W/ FOLIC ACID TABLET (FP) PO SCH (10:05)
[2024-01-27 12:16] LABS: POTASSIUM 3.9 mmol/L (3.5-5.1)
[2024-01-27 12:19] LABS: ALBUMIN 3.6 g/dl (3.4-5.0); BLOOD UREA NITROGEN 12.2 mg/dL (7-18); CALCIUM 8.5 mg/dL (8.5-10.1)
[2024-01-27 12:22] LABS: CREATININE 0.9 mg/dL (0.55-1.3)
[2024-01-27 12:24] LABS: BILIRUBIN,TOTAL 0.9 mg/dL (0.2-1); HEMATOCRIT 36.2 % (35.4-49); MCH 32.2 pg (25.7-33.7); MCHC 33.3 g/dl (32.0-35.9); MEAN CELL VOLUME 96.8 fl (80-96); MEAN PLT VOLUME 9.2 fl (7.5-11.1); PLATELET COUNT 183 10^3/uL (134-434); RBC 3.74 M/mm3 (4.00-5.60); RDW 16.5 % (11.9-15.9); TOT PROT 7.1 g/dl (6.4-8.2); WHITE BLOOD COUNT 5.2 K/mm3 (4.0-10.0)
[2024-01-28] MEDS: chlordiazePOXIDE HCL 25 MG CAPSULE PO SCH ×2 (05:55→17:38)
[2024-01-28 09:25] VITALS: RESP 18
[2024-01-28] MEDS: amLODIPine BESYLATE 2.5 MG TABLET (FP) PO SCH (10:47)
[2024-01-28 13:25] VITALS: BP 147/97; PULSE 90; TEMP 98
[2024-01-28] MEDS ORDERED: cloNIDine HCL 0.1 MG TABLET PO PRN (14:04)
[2024-01-28] MEDS ORDERED: LOPERAMIDE HCL 2 MG CAPSULE PO PRN (15:30)
[2024-01-28] MEDS: LOPERAMIDE HCL 2 MG CAPSULE PO ONE (15:55)
[2024-01-28] MEDS: chlordiazePOXIDE HCL 10 MG CAPSULE PO SCH (17:31)
[2024-01-29] MEDS ORDERED: chlordiazePOXIDE HCL 10 MG CAPSULE PO PRN
[2024-01-29] MEDS: chlordiazePOXIDE HCL 10 MG CAPSULE PO SCH (05:59)
[2024-01-29] MEDS: amLODIPine BESYLATE 5 MG TABLET (FP) PO SCH (10:57)
[2024-01-30] MEDS ORDERED: chlordiazePOXIDE HCL 10 MG CAPSULE PO SCH (05:00)
[2024-01-31] MEDS ORDERED: chlordiazePOXIDE HCL 10 MG CAPSULE PO ONE (05:00)
== END 2024-01-29 09:10 | disposition home or self-care (01) | DRG 775 ==
LOC: YASAS 17:13 → Y6N 21:46
PROVIDERS: ADMIT Allergy & Immunology; ATTEND Surgery
PROC: HZ2ZZZZ Detoxification Services for Substance Abuse Treatment (ICD-10-PCS; principal; 2024-01-26)
DX: F10.230 Alcohol dependence with withdrawal, uncomplicated (principal); F12.20 Cannabis dependence, uncomplicated; F17.210 Nicotine dependence, cigarettes, uncomplicated; F10.282 Alcohol dependence with alcohol-induced sleep disorder; F10.24 Alcohol dependence with alcohol-induced mood disorder; G40.909 Epilepsy, unspecified, not intractable, without status epilepticus; G62.9 Polyneuropathy, unspecified; I10 Essential (primary) hypertension; M54.2 Cervicalgia; M54.50 Low back pain, unspecified; G89.29 Other chronic pain; Z87.820 Personal history of traumatic brain injury
CPT/HCPCS: 36415; 80053; 80305; 85027; 86780

== ENCOUNTER 2024-08-14 16:25 | Inpatient (IN) | payer OTHER ==
[2024-08-14 17:18] VITALS: BMI 26.6
[2024-08-14] MEDS ORDERED: MAG HYDROX/AL HYDROX/SIMETH 30 ML UNIT-DOSE CUP PO PRN (17:24)
[2024-08-14] MEDS ORDERED: BISMUTH SUBSALICYLATE 524 MG/30 ML PO PRN (17:24)
[2024-08-14] MEDS ORDERED: IBUPROFEN 400 MG TABLET (FP) PO PRN (17:24)
[2024-08-14] MEDS ORDERED: guaiFENesin 600 MG TABLET.ER (FP) PO PRN (17:24)
[2024-08-14] MEDS ORDERED: NICOTINE POLACRILEX 2 MG LOZENGE BC PRN (17:24)
[2024-08-14] MEDS ORDERED: ONDANSETRON *ODT* 4 MG TABLET SL PRN (17:24)
[2024-08-14] MEDS ORDERED: MAGNESIUM HYDROX 2400MG/30ML ORAL SUSPENSION 30 ML CUP PO PRN (17:24)
[2024-08-14] MEDS ORDERED: IBUPROFEN 600 MG TABLET (FP) PO PRN (17:24)
[2024-08-14] MEDS ORDERED: BENZOCAINE/MENTHOL (CHLORASEPTIC ) LOZENGE MM PRN (17:24)
[2024-08-14] MEDS ORDERED: LOPERAMIDE HCL 2 MG CAPSULE PO PRN (17:24)
[2024-08-14] MEDS ORDERED: hydrOXYzine PAMOATE 25 MG CAPSULE (FP) PO PRN (17:24)
[2024-08-14] MEDS ORDERED: DICYCLOMINE HCL 10 MG CAPSULE PO PRN (17:24)
[2024-08-14] MEDS ORDERED: ACETAMINOPHEN 325 MG TABLET (FP) PO PRN (17:24)
[2024-08-14] MEDS ORDERED: BENZONATATE 200 MG CAPSULE PO PRN (17:24)
[2024-08-14] MEDS ORDERED: POLYETHYLENE GLYCOL (HEALTHYLAX) 3350 17 GM PACKET PO PRN (17:24)
[2024-08-14] MEDS ORDERED: NICOTINE POLACRILEX 2 MG GUM BUC PRN (17:24)
[2024-08-14] MEDS ORDERED: chlordiazePOXIDE HCL 25 MG CAPSULE PO PRN (17:25)
[2024-08-14] MEDS ORDERED: chlordiazePOXIDE HCL 25 MG CAPSULE ONE (19:41)
[2024-08-14] MEDS: chlordiazePOXIDE HCL 25 MG CAPSULE PO SCH (19:52)
[2024-08-14] MEDS: THIAMINE 100 MG TABLET PO SCH (22:32)
[2024-08-14] MEDS: MELATONIN 5 MG TABLETS PO SCH (22:32)
[2024-08-14] MEDS: levETIRAcetam XR 750 MG TAB PO SCH (22:52)
[2024-08-15] MEDS: PRENATAL VITAMINS W/ FOLIC ACID TABLET (FP) PO SCH (10:57)
[2024-08-15] MEDS: amLODIPine BESYLATE 5 MG TABLET (FP) PO SCH (10:57)
[2024-08-15 12:08] LABS: HEMATOCRIT 34.5 % (35.4-49); HEMOGLOBIN 11.5 GM/dL (11.7-16.9); MCH 32.8 pg (25.7-33.7); MCHC 33.5 g/dl (32.0-35.9); MEAN PLT VOLUME 9.7 fl (7.5-11.1); PLATELET COUNT 194 10^3/uL (134-434); RBC 3.52 M/mm3 (4.00-5.60); RDW 15.4 % (11.9-15.9); WHITE BLOOD COUNT 5.6 K/mm3 (4.0-10.0)
[2024-08-15 13:04] LABS: CHLORIDE 106 mmol/L (98-107); POTASSIUM 4.1 mmol/L (3.5-5.1); SODIUM 138 mmol/L (136-145)
[2024-08-15 13:10] LABS: ALBUMIN 3.2 g/dl (3.4-5.0); ANION GAP 9 mmol/L (4-13); BLOOD UREA NITROGEN 11.9 mg/dL (7-18); CALCIUM 8.9 mg/dL (8.5-10.1); CO2 23 mmol/L (21-32); GLUCOSE,RANDOM 122 mg/dL (74-106)
[2024-08-15 13:13] LABS: CREATININE 0.7 mg/dL (0.55-1.3); SGPT/ALT 22 U/L (13-61)
[2024-08-15 13:14] LABS: SGOT/AST 24 U/L (15-37)
[2024-08-15 13:15] LABS: BILIRUBIN,TOTAL 0.3 mg/dL (0.2-1); TOT PROT 6.2 g/dl (6.4-8.2)
[2024-08-15 13:16] LABS: ALK PHOS 62 U/L (45-117)
[2024-08-16] MEDS: chlordiazePOXIDE HCL 25 MG CAPSULE PO SCH (05:34)
[2024-08-16] MEDS: METHOCARBAMOL 500 MG TABLET PO PRN (22:47)
[2024-08-17] MEDS ORDERED: chlordiazePOXIDE HCL 10 MG CAPSULE PO PRN
[2024-08-17] MEDS: chlordiazePOXIDE HCL 10 MG CAPSULE PO SCH (05:55)
[2024-08-18] MEDS: chlordiazePOXIDE HCL 10 MG CAPSULE PO SCH (05:17)
[2024-08-18 09:06] VITALS: BP 114/67; PULSE 75; RESP 19; TEMP 97.7
[2024-08-18] MEDS: NALOXONE (NYS OPIOID OVERDOSE PROGRAM) 4 MG/0.1 ML SPRAY NS SCH (15:10)
[2024-08-19] MEDS: chlordiazePOXIDE HCL 10 MG CAPSULE PO ONE (06:00)
== END 2024-08-19 08:58 | disposition home or self-care (01) | DRG 775 ==
LOC: YASAS 16:25 → Y3N 19:30
PROVIDERS: ADMIT Allergy & Immunology; ATTEND Surgery
PROC: HZ2ZZZZ Detoxification Services for Substance Abuse Treatment (ICD-10-PCS; principal; 2024-08-14)
DX: F10.230 Alcohol dependence with withdrawal, uncomplicated (principal); F12.20 Cannabis dependence, uncomplicated; F17.210 Nicotine dependence, cigarettes, uncomplicated; I10 Essential (primary) hypertension; G40.909 Epilepsy, unspecified, not intractable, without status epilepticus; Z91.013 Allergy to seafood; Z56.0 Unemployment, unspecified; Z59.02 Unsheltered homelessness
CPT/HCPCS: 36415; 80053; 80307; 85027; 86780; 93005; 93010